=== PATIENT | female | born 1960 | race Caucasian/White ===

== ENCOUNTER 2019-09-11 10:14 | Outpatient (CLI) | payer MEDICARE, SELFPAY ==
--- NOTE | ~2019-09-11 | CT_ITS ---
EXAMINATION: CT lung screening DATE: 09/11/2019 10:55 INDICATION: History of tobacco dependence. Chronic cough. Lung cancer screening. TECHNIQUE: Computed tomography (CT) of the chest was performed without intravenous contrast. The dose -length product was 260.19 mGy-cm. Automated exposure control and iterative reconstruction technique were employed. COMPARISON: CT dated 07/14/2018 FINDINGS: No significant pleural or pericardial effusion. Heart size normal. Stable enlarged high rig ht paratracheal lymph node measuring 1.1 cm, likely reactive. Visualized aspects of the upper abdomen are unremarkable. Stable 4 mm right middle lobe nodule, image 53. There is a 3 mm nodule right middl e lobe, image 56, stable. Stable 2 mm right upper lobe nodule. 2 mm right lower lobe nodule, image 59 , stable. No new pulmonary nodules or masses. No focal airspace consolidation. No pneumothorax. IMPRESSION: 1. Lung-RADS category 2: Benign appearance or behavior. Continue annual screening with noncontrast lo w-dose chest CT in 12 months. Reviewed, dictated and finalized at location A. IMPRESSION: 1. Lung-RADS category 2: Benign appearance or behavior. Continue annual screeni ng with noncontrast low-dose chest CT in 12 months.
== END 2019-09-11 10:15 | disposition home or self-care (01) ==
PROVIDERS: PCP Family Medicine; Visit Provider Family Medicine
DX: Z12.2 Encounter for screening for malignant neoplasm of respiratory organs (principal); Z87.891 Personal history of nicotine dependence
CPT/HCPCS: G0297

== ENCOUNTER 2019-09-30 22:53 | Emergency (ER) | payer MEDICARE, SELFPAY ==
[2019-09-30 23:10] VITALS: BP 123/83; PULSE 115; RESP 20; TEMP 36.8; O2SAT 97
--- NOTE | 2019-09-30 23:11 | ED.NECK ---
HPI - Neck Pain/Injury General Chief Complaint: Unspecified Stated Complaint: swelling in law Time Seen by Provider: 09/30/19 22:57 Source: patient Mode of arrival: ambulatory Limitations: no limitations History of Present Illness HPI Narrative: 58-year-old woman comes in today complaining of some mild discomfort and swelling in her left cheek when she eats. Patient states that it started yesterday. She denies any fever, difficulty swallowing, difficulty breathing, tongue swelling or dental pain. She has had no prior similar episodes. She denies history of facial surgery. Onset (ago): day(s) (1) Place: home Severity: mild Quality: sharp Duration: intermittent Exacerbating factors: other ( Eating) Treatments prior to arrival: acetaminophen Related Data Home Medications Medication Instructions Recorded Confirmed atorvastatin 20 mg PO DAILY 09/30/19 09/30/19 citalopram 40 mg PO DAILY 09/30/19 09/30/19 glimepiride 2 mg PO DAILY 09/30/19 09/30/19 lisinopril 2.5 mg PO DAILY 09/30/19 09/30/19 metformin 1,000 mg PO BID 09/30/19 09/30/19 pioglitazone 15 mg PO DAILY 09/30/19 09/30/19 Allergies Allergy/AdvReac Type Severity Reaction Status Date / Time No Known Allergies Allergy Unknown Unverified 08/27/08 14:18 Review of Systems Constitutional: Constitutional: Denies chills, Reports fatigue and Denies fever(s) Eyes: Eyes: Denies change in vision and Denies photophobia ENT: Denies dysphagia, Denies nasal congestion and Denies sore throat Cardiovascular: Cardiovascular: Denies chest pain and Denies radiating jaw, neck or arm pain Respiratory: Respiratory: Denies cough, Denies dyspnea and Denies wheezing Gastrointestinal: Gastrointestinal: Denies abdominal pain and Denies vomiting Integumentary/Breasts: Skin/Breast: Denies pruritus, Denies erythema and Denies rash Neurologic: Denies vertigo, Denies dizziness and Denies syncope Hematologic/Lymphatic: Hematologic/Lymphatic: Denies easy bleeding and Denies easy bruising Allergic/Immunologic: Allergic/Immunologic: Denies lip swelling and Denies wheezing PMFSH Past Medical History Medical History Asthma COPD (chronic obstructive pulmonary disease) Dyslipidemia Fibromyalgia Hypertension Type 2 diabetes mellitus Surgical History Surgical History S/P hernia repair ventral Family History Family History (Updated 06/17/15 @ 09:29 by DOCTOR UNKNOWN) Other Diabetes mellitus Family history of alcoholism Family history of arthritis Family history of cardiovascular disease Hypertension Social History Social History Smoking status: Current every day smoker Alcohol intake: never Substance use: never Living arrangements: with family Exam Const: General: healthy appearing, no acute distress and alert Orientation/consciousness: patient oriented x3 Limitations: no limitations HENMT: Ears: external ears normal, TM's normal bilaterally and EAC's normal General nose exam: Normal nares present Mouth: Yes Normal oral and palatal mucosa present and Yes moist mucous membranes Throat: posterior oropharynx normal and uvula midline Other: mild swelling over the left jaw angle with no erythema, warmth, induration or masses. Palpation of the buccal surface shows no swelling, tenderness or palpable masses at Stensen's duct. Eyes: Conjunctivae: conjunctivae normal Pupils: Equal, round and reactive pupils present EOM: EOMs intact bilaterally Neck: Neck: normal visual inspection and no lymphadenopathy Resp: Effort & Inspection: normal respiratory effort and not labored Auscultation: clear to auscultation bilaterally, no rales, no rhonchi and no wheezes Cardio: Rate: regular rate Rhythm: regular rhythm Heart sounds: no murmurs Skin: General skin exam: normal color, no jaundice and
[2019-09-30 23:49] VITALS: BP 130/78; PULSE 100; RESP 20; TEMP 36.6; O2SAT 97
[2019-09-30] MEDS: AMOXICILLIN/CLAVULANATE K 875-125 MG TAB 1 TABLET PO (23:49)
== END 2019-09-30 23:51 | disposition home or self-care (01) ==
PROVIDERS: Emergency Provider Emergency Medicine; PCP Family Medicine
DX: K11.21 Acute sialoadenitis (principal)
CPT/HCPCS: 99283; A9270

== ENCOUNTER 2020-04-29 22:06 | Emergency (ER) | payer MEDICARE, SELFPAY ==
--- NOTE | ~2020-04-29 | XR_ITS ---
EXAMINATION: XR shoulder RT min 2V INDICATION: Right shoulder pain TECHNIQUE: Two views of the right shoulder are obtained on three radiographs. COMPARISON: 10/01/2015 FINDINGS: There is a chronic healed surgical neck fracture of the proximal humerus. No acute fracture is identified. Bone alignment is normal. There is mild osteoarthritis of the glenohumeral and acromi oclavicular joints. Soft tissues are unremarkable. IMPRESSION: 1. Healed fracture of the proximal right humerus without acute osseous abnormality. Reviewed, dictated and finalized at location A. RY DRILLER IMPRESSION: 1. Healed fracture of the proximal right humerus without acute osseous abnormal ity.
[2020-04-29 22:10] VITALS: BP 132/84; PULSE 101; RESP 20; TEMP 36.6; O2SAT 98
[2020-04-29] MEDS: HYDROmorphone HCL INJ (*CRX) 2 MG/ML VIAL 1 MG IM (22:33)
[2020-04-29] MEDS: ONDANSETRON HCL ODT 4 MG TABLET PO (22:35)
[2020-04-29 23:41] VITALS: BP 139/78; PULSE 100; RESP 20; TEMP 36.9; O2SAT 97
--- NOTE | 2020-04-29 23:46 | ED.UPPEXIN ---
HPI - Extremity Injury (Upper) General Chief Complaint: Extremity Injury, Upper Stated Complaint: shoulder pain Time Seen by Provider: 04/29/20 22:15 Source: patient Mode of arrival: ambulatory Limitations: no limitations History of Present Illness HPI narrative: Patient comes in after hearing a pop when she moved her right arm which had a fractured humerus in the past. She has had moderately severe, sharp pain with this, ongoing since hearing the pop a few minutes prior to arrival. Nothing has made this better or worse MD complaint: injury to: right and shoulder Onset (ago): minute(s) (30) Other injuries: none Handedness: right Place: home Severity: moderate Severity scale (1-10): 5 Relieving factors: none Exacerbating factors: none Associated symptoms: denies other symptoms Related Data Home Medications Medication Instructions Recorded Confirmed atorvastatin 20 mg PO DAILY 09/30/19 04/29/20 citalopram 40 mg PO DAILY 09/30/19 04/29/20 glimepiride 2 mg PO DAILY 09/30/19 04/29/20 lisinopril 2.5 mg PO DAILY 09/30/19 04/29/20 metformin 1,000 mg PO BID 09/30/19 04/29/20 pioglitazone 15 mg PO DAILY 09/30/19 04/29/20 Allergies Allergy/AdvReac Type Severity Reaction Status Date / Time No Known Allergies Allergy Unknown Unverified 08/27/08 14:18 Review of Systems Constitutional: Constitutional: Reports no additional constitutional complaints Eyes: Eyes: Reports no additional eye complaints ENT: Reports system reviewed and no additional complaints, except as documented Cardiovascular: Cardiovascular: Reports no additional cardiovascular complaints Respiratory: Respiratory: Reports no additional respiratory complaints Gastrointestinal: Gastrointestinal: Reports no additional gastrointestinal complaints Genitourinary: Genitourinary: Reports no additional female genitourinary complaints Musculoskeletal: Musculoskeletal: Reports no additional musculoskeletal complaints Integumentary/Breasts: Skin/Breast: Reports system reviewed and no additional complaints, except as docu Neurologic: Reports system reviewed and no additional complaints, except as documented Psychiatric: Psychiatric: Reports no additional psychiatric complaints Endocrine: Endocrine: Reports no additional endocrine complaints Hematologic/Lymphatic: Hematologic/Lymphatic: Reports no additional hematologic/lymphatic complaints Allergic/Immunologic: Allergic/Immunologic: Reports no additional allergic/immunologic complaints PMFSH Past Medical History Medical History Acute shoulder pain Asthma COPD (chronic obstructive pulmonary disease) Dyslipidemia Fibromyalgia Hypertension Type 2 diabetes mellitus Surgical History Surgical History S/P hernia repair ventral Family History Family History Other Diabetes mellitus Family history of alcoholism Family history of arthritis Family history of cardiovascular disease Hypertension Social History Social History Smoking status: Current every day smoker Alcohol intake: never Substance use: never Exam Const: General: alert Other: Appears to be painful HENMT: Head: normal to inspection Ears: external ears normal and TM's normal bilaterally General nose exam: Normal external nose present Face and sinus: normal facial exam Mouth: Yes moist mucous membranes Throat: posterior oropharynx normal Eyes: Conjunctivae: conjunctivae normal Neck: Neck: normal visual inspection Lymphatic: no lymphadenopathy noted Chest: Chest palpation & inspection: normal inspection of the chest Resp: Effort & Inspection: normal respiratory effort Auscultation: clear to auscultation bilaterally Cardio: Rate: regular rate Rhythm: regular rhythm GI: GI Palp: Yes Soft to palpation (nontender) Sk
[2020-04-29] MEDS: KETOROLAC 10 MG TABLET PO (23:50)
== END 2020-04-30 | disposition home or self-care (01) ==
PROVIDERS: Emergency Provider Emergency Medicine; PCP Family Medicine
DX: M25.511 Pain in right shoulder (principal)
CPT/HCPCS: 73030; 96372; 99283; 99284; A9270; J1100; J1170; J1885

== ENCOUNTER 2020-06-12 22:19 | Emergency (ER) | payer MEDICARE, SELFPAY ==
[2020-06-12 22:30] VITALS: BP 109/69; PULSE 110; RESP 20; TEMP 36.9; O2SAT 97
--- NOTE | 2020-06-12 22:50 | ED.SKABFB ---
HPI - Skin/Abscess/Foreign Bdy General Chief complaint: Skin/Abscess/Foreign Body Stated complaint: sore on butt Source: patient Mode of arrival: ambulatory Limitations: no limitations History of Present Illness HPI narrative: this 59-year-old female that presents with a abscess on the right gluteal fold area that is nonfluctuant currently is warm tender to touch with no drainage patient has no fevers no shortness of breath no abdominal pain this has been going on for the last week or so and has gotten worse but it is nonfluctuant painful patient does have a history of diabetes. complaint: abscess/boil Onset (ago): day(s) Location: buttocks Severity: moderate Severity scale (1-10): 8 Quality: aching Pain Consistency: constant Exacerbating factors: palpation and movement Related Data Home Medications Medication Instructions Recorded Confirmed atorvastatin 20 mg PO DAILY 09/30/19 06/12/20 citalopram 40 mg PO DAILY 09/30/19 06/12/20 glimepiride 2 mg PO DAILY 09/30/19 06/12/20 lisinopril 2.5 mg PO DAILY 09/30/19 06/12/20 metformin 1,000 mg PO BID 09/30/19 06/12/20 pioglitazone 15 mg PO DAILY 09/30/19 06/12/20 Allergies Allergy/AdvReac Type Severity Reaction Status Date / Time No Known Allergies Allergy Unknown Unverified 08/27/08 14:18 Review of Systems Review of Systems: All systems reviewed & are unremarkable except as noted in HPI and below PMFSH Past Medical History Medical History Acute shoulder pain Asthma COPD (chronic obstructive pulmonary disease) Dyslipidemia Fibromyalgia Hypertension Type 2 diabetes mellitus Surgical History Surgical History S/P hernia repair ventral Family History Family History Other Diabetes mellitus Family history of alcoholism Family history of arthritis Family history of cardiovascular disease Hypertension Social History Social History Smoking status: Current every day smoker Alcohol intake: never Substance use: never Exam Const: General: no acute distress Orientation/consciousness: patient oriented x3 HENMT: Head: normal to inspection Eyes: Conjunctivae: conjunctivae normal Pupils: Equal, round and reactive pupils present EOM: EOMs intact bilaterally Neck: Neck: normal visual inspection, no lymphadenopathy and no meningeal signs Chest: Chest palpation & inspection: normal inspection of the chest Resp: Effort & Inspection: normal respiratory effort Auscultation: clear to auscultation bilaterally Cardio: Rate: regular rate Rhythm: regular rhythm GI: Auscultation: normal bowel sounds Skin: Other: Right [place] buttock area has a an abscess it is nonfluctuant firm tender to touch with no drainage approximately 3cm in diameter Neuro: General: patient oriented x3, moves all extremities and no meningeal signs Psych: Appearance: grossly normal Mental Status: mental status grossly normal Thought content: Yes Normal thought content present Course Course Emergency Course: after evaluation of patient the abscess is firm and nonfluctuant and advised her to use a warm compress pain medicine as prescribed, and will give her a dose of ceftriaxone and Toradol patient is here in the emergency department. Critical Care Time Critical Care Time Critical Care Time: No Discharge Plan Discharge Clinical Impression: Abscess of skin or subcutaneous tissue Patient Disposition: Home, Self-Care Condition: Stable Instructions: Antibiotic Form, Abscess (ED) Additional Instructions: Take medicine as prescribed, can use warm compress to affected area and follow-up with primary care physician in 1 to 2 weeks if symptoms persist or worsen. Prescriptions: New amoxicillin-pot clavulanate [Augmentin] 875-125 mg tablet
[2020-06-12] MEDS: cefTRIAXone 1 GM VIAL IM (23:00)
[2020-06-12] MEDS: LIDOCAINE HCL 1% LOCAL INJ 20 ML VIAL (23:04)
[2020-06-12] MEDS: KETOROLAC (*BKC) 60 MG/2 ML VIAL IM (23:04)
[2020-06-12 23:08] VITALS: BP 110/60; PULSE 100; RESP 20; TEMP 36.6; O2SAT 98
== END 2020-06-12 23:12 | disposition home or self-care (01) ==
PROVIDERS: Emergency Provider Emergency Medicine; PCP Family Medicine
DX: L02.31 Cutaneous abscess of buttock (principal)
CPT/HCPCS: 96372; 99283; 99284; J0696; J1885

== ENCOUNTER 2020-07-31 20:53 | Emergency (ER) | payer MEDICARE, SELFPAY ==
[2020-07-31 20:55] VITALS: BP 129/93; PULSE 94; RESP 20; TEMP 36.6; O2SAT 97
[2020-07-31] MEDS: LIDOCAINE HCL 1% LOCAL INJ 20 ML VIAL 10 ML INFILTRATE (21:10)
--- NOTE | 2020-07-31 21:19 | ED.WOUNDLAC ---
HPI - Wound/Laceration General Stated Complaint: abscess on butt Source: patient Mode of arrival: ambulatory Limitations: no limitations History of Present Illness HPI narrative: This is a 59-year-old female with some history of diabetes and recurrent abscess formation currently has an abscess on the right gluteal area that is fluctuant painful proximally 4cm in diameter and has been mildly draining there is currently no fever chills pain level is about a 7/10 had similar episode about 3 months ago was prescribed antibiotics. Patient has a history of diabetes according the patient probably not work very well controlled. Onset (ago): week(s) Location: other (buttock) Related Data Home Medications Medication Instructions Recorded Confirmed atorvastatin 20 mg PO DAILY 09/30/19 06/12/20 citalopram 40 mg PO DAILY 09/30/19 06/12/20 glimepiride 2 mg PO DAILY 09/30/19 06/12/20 lisinopril 2.5 mg PO DAILY 09/30/19 06/12/20 metformin 1,000 mg PO BID 09/30/19 06/12/20 pioglitazone 15 mg PO DAILY 09/30/19 06/12/20 Allergies Allergy/AdvReac Type Severity Reaction Status Date / Time No Known Allergies Allergy Unknown Unverified 08/27/08 14:18 Review of Systems Review of Systems: All systems reviewed & are unremarkable except as noted in HPI and below PMFSH Past Medical History Medical History Acute shoulder pain Asthma COPD (chronic obstructive pulmonary disease) Dyslipidemia Fibromyalgia Hypertension Type 2 diabetes mellitus Surgical History Surgical History S/P hernia repair ventral Family History Family History Other Diabetes mellitus Family history of alcoholism Family history of arthritis Family history of cardiovascular disease Hypertension Social History Social History Smoking status: Current every day smoker Alcohol intake: never Substance use: never Exam Const: General: no acute distress and alert Orientation/consciousness: patient oriented x3 HENMT: Head: normal to inspection Eyes: Conjunctivae: conjunctivae normal Pupils: Equal, round and reactive pupils present EOM: EOMs intact bilaterally Neck: Neck: normal visual inspection, no lymphadenopathy and no meningeal signs Chest: Chest palpation & inspection: normal inspection of the chest Resp: Effort & Inspection: normal respiratory effort Auscultation: clear to auscultation bilaterally Cardio: Rate: regular rate Rhythm: regular rhythm GI: GI Palp: Yes Soft to palpation Skin: Other: Fluctuant area right gluteal fold approximately 4cm in diameter with some mild drainage warmth tenderness Neuro: General: patient oriented x3, moves all extremities and no meningeal signs Extrem: General: normal to inspection and no pedal edema Psych: Appearance: grossly normal Mental Status: mental status grossly normal Affect: normal affect Course Course Emergency Course: patient area examined there is a fluctuant area right gluteal fold approximately 4cm in diameter is fluctuant with some drainage warm and tender, iodine was sprayed on the area, 1% lidocaine [id number] were injected for a topical anesthetic 11 blade was used to make incision and there was a significant amount of purulence to drainage. Patient also having pain received 60 mg IM Toradol, 1 g IM ceftriaxone and apply triple antibiotic ointment to the area as well. Procedures Abscess I/D jose-rectal: Date of Incision: 07/31/20 Time of Incision: 21:24 Side (if applicable): right Sedation/analgesia: none Local Anesthetic: lidocaine 1% Amount of anesthesia used (mL): 4 Technique: incised with #11 blade Amount of fluid expressed (mL): 15 Irrigation: No Packing used?: none I&D Res
[2020-07-31] MEDS: NEOMYCIN/POLYMYXIN/BACITRACIN OINTMENT PACKET 1 PACKET TOPICAL (21:25)
[2020-07-31] MEDS: KETOROLAC (*BKC) 60 MG/2 ML VIAL IM (21:35)
[2020-07-31] MEDS: cefTRIAXone 1 GM VIAL IM (21:35)
[2020-07-31 21:48] VITALS: BP 129/93; PULSE 95; RESP 20; TEMP 36.6; O2SAT 97
== END 2020-07-31 21:55 | disposition home or self-care (01) ==
PROVIDERS: Emergency Provider Emergency Medicine; PCP Family Medicine
DX: L02.31 Cutaneous abscess of buttock (principal)
CPT/HCPCS: 46040; 87070; 87205; 96372; 99283; 99284; J0696; J1885

== ENCOUNTER 2020-08-26 12:57 | Outpatient (CLI) | payer MEDICARE, SELFPAY ==
--- NOTE | ~2020-08-26 | MM_ITS ---
EXAMINATION: MM screening [facility] BI w castillo HISTORY: Screening TECHNIQUE: Craniocaudal and mediolateral oblique 3-D tomosynthesis images were obtained and synthetic 2-D images were generated. CAD analysis was submitted and interpreted. COMPARISON: Comparison to multiple prior studies sequentially, with oldest reviewed study dated 06/2013. BREAST PARENCHYMAL COMPOSITION: There are scattered areas of fibroglandular density. FINDINGS: There is no evidence of suspicious mass, calcification, or architectural distortion to sugg est malignancy in either breast. There has been no suspicious interval change. IMPRESSION: 1. No mammographic evidence of malignancy. 2. Recommend routine screening mammography in one year. BI-RADS Category 1: Negative Reviewed, dictated and finalized at location A.
--- NOTE | ~2020-08-26 | CT_ITS ---
EXAMINATION: CT lung screening DATE: 08/26/2020 13:18 INDICATION: Personal history of tobacco dependence, current smoker with 30 pack year history TECHNIQUE: Computed tomography (CT) of the chest was performed without intravenous contrast. The dose -length product (DLP) was 88.23 mGy-cm. Automated exposure control and iterative reconstruction techn [employer] were employed. COMPARISON: 09/11/2019 FINDINGS: There are multiple stable pulmonary nodules. The largest is a 4 mm subpleural nodule of the right middle lobe on image 62. No new or suspicious pulmonary nodule is identified. There is mild em physema. No pleural effusion or pneumothorax is identified. The lungs are free of acute opacities. No pathologically enlarged thoracic lymph nodes are identified. The heart size is normal. IMPRESSION: 1. Lung-RADS category 2: Benign appearance or behavior. Continue annual screening with noncontrast lo w-dose chest CT in 12 months. Reviewed, dictated and finalized at location A. IMPRESSION: 1. Lung-RADS category 2: Benign appearance or behavior. Continue annual screeni ng with noncontrast low-dose chest CT in 12 months.
== END 2020-08-26 12:58 | disposition home or self-care (01) ==
LOC: CHSIMG 12:59
PROVIDERS: PCP Family Medicine; Visit Provider Family Medicine
DX: Z12.2 Encounter for screening for malignant neoplasm of respiratory organs (principal); Z87.891 Personal history of nicotine dependence; Z12.31 Encounter for screening mammogram for malignant neoplasm of breast
CPT/HCPCS: 71271; 77063; 77067

== ENCOUNTER 2022-10-10 19:03 | Emergency (ER) | payer MEDICARE, SELFPAY ==
[2022-10-10 19:05] VITALS: BP 135/84; PULSE 129; RESP 20; TEMP 36.6; O2SAT 97
--- NOTE | 2022-10-10 19:06 | ED.BACK ---
HPI - Back Pain/Injury General Chief Complaint: Back Pain/Injury Stated Complaint: low back pain Time Seen by Provider: 10/10/22 19:05 Source: patient and RN notes reviewed Mode of arrival: ambulatory Limitations: no limitations History of Present Illness MD elicited complaint: back pain Onset (ago): week(s) (2) Timing: constant Quality: dull, aching, spasming and throbbing Location: lumbar spine Radiation: abdomen Exacerbating factors: movement Relieving factors: none Associated symptoms: denies other symptoms Related Data Home Medications Medication Instructions Recorded Confirmed ascorbic acid (vitamin C) 1,000 mg 1 g PO DAILY 10/10/22 10/10/22 tablet (Vitamin C) omega 4-bzb-yoc-fish oil 1,000 mg 1 cap PO DAILY 10/10/22 10/10/22 (120 mg-180 mg) capsule (Fish Oil) sitagliptin phosphate 25 mg tablet 25 mg PO DAILY 10/10/22 10/10/22 (Januvia) Allergies Allergy/AdvReac Type Severity Reaction Status Date / Time No Known Allergies Allergy Unknown Unverified 10/10/22 19:10 Review of Systems Review of Systems: All systems reviewed & are unremarkable except as noted in HPI and below Genitourinary: Genitourinary: Denies nocturia and Denies dysuria PMFSH Past Medical History Medical History (Updated 10/10/22 @ 19:43 by Everett Swift MD) Acute shoulder pain Asthma COPD (chronic obstructive pulmonary disease) Dyslipidemia Fibromyalgia Hypertension IBS (irritable bowel syndrome) Type 2 diabetes mellitus Surgical History Surgical History S/P hernia repair ventral Family History Family History Other Diabetes mellitus Family history of alcoholism Family history of arthritis Family history of cardiovascular disease Hypertension Social History Social History Smoking status: Current every day smoker Alcohol intake: never Substance use: never Living arrangements: with family Exam Const: General: healthy appearing, no acute distress and alert Nutritional Appearance: well nourished Orientation/consciousness: patient oriented x3 Limitations: no limitations Other: Nurse in room during examination. HENMT: Head: normal to inspection Ears: external ears normal Face/Nose/Sinus: Normal external nose present Face and sinus: normal facial exam Mouth: Yes moist mucous membranes Eyes: Conjunctivae: conjunctivae normal Pupils: Equal, round and reactive pupils present EOM: EOMs intact bilaterally Neck: Neck: normal visual inspection Resp: Effort & Inspection: normal respiratory effort Auscultation: clear to auscultation bilaterally Cardio: Rate: regular rate Rhythm: regular rhythm GI: GI Palp: Yes Soft to palpation and No Tenderness to palpation present (GI) Auscultation: normal bowel sounds Back/Spine/Pelvis: Cervical Spine: cervical ROM normal Thoracic/Lumbar Spine: thoraco-lumbar ROM normal ( But reproduces her pain), straight leg raise negative bilaterally, paraspinal muscle tenderness bilaterally in the lower lumbar, thoraco-lumbar spasm bilaterally in the lower lumbar and No lumbar spinal tenderness Skin: General skin exam: normal color Rashes: no rashes Neuro: General: patient oriented x3, moves all extremities, no focal motor deficits and CN's II-XI intact bilaterally Speech: normal speech Gait exam (Neuro): Normal gait present Deep tendon reflexes (DTR's): Right patellar reflex intensity grade: 2+, Left patellar reflex intensity grade: 2+, Right ankle reflex intensity grade: 2+ and Left ankle reflex intensity grade: 2+ Extrem: General: normal to inspection and no clubbing, cyanosis or edema Psych: Mental Status: mental status grossly normal Affect: normal affect Attitude: cooperative MDM - Back Pain/Injury Differential Diagnosis Differential diagnosis: Likely lumbar radiculopathy, sciatica, s
[2022-10-10 19:29] LABS: Add Urine Microscopic? YES; Appearance Urine Slightly Cloudy (Clear); Bilirubin Urine Negative (Negative); Blood Urine Negative (Negative); Color Urine Dark Orange (Yellow); Glucose Urine UA Trace (Negative); Ketones Urine Trace (Negative); Leukocyte Esterase Ur Negative LEU/UL (Negative); Nitrate Urine Negative (Negative); Protein Urine Trace (Negative); Specific Grav Ur >= 1.030 (1.010-1.020); Urobilinogen Urine 0.2 mg/dL (0.2-1.0)
[2022-10-10 19:30] LABS: Hyaline Casts Urine 50+ /lpf; Mucus Urine Heavy /lpf; Squamous Epithelial Cell Urine Many /hpf (Few)
[2022-10-10] MEDS: ORPHENADRINE CITRATE 30 MG/ML 2 ML VIAL 60 MG IM (19:37)
[2022-10-10] MEDS: KETOROLAC (*BKC) 60 MG/2 ML VIAL IM (19:38)
[2022-10-10 20:05] VITALS: BP 143/85; PULSE 122; RESP 20; O2SAT 97
== END 2022-10-10 20:07 | disposition home or self-care (01) ==
PROVIDERS: Emergency Provider Emergency Medicine; PCP Family Medicine
DX: M79.7 Fibromyalgia (principal); J44.9 Chronic obstructive pulmonary disease, unspecified; I10 Essential (primary) hypertension; E11.9 Type 2 diabetes mellitus without complications; F17.200 Nicotine dependence, unspecified, uncomplicated
CPT/HCPCS: 81001; 96372; 99284; J1885; J2360

== ENCOUNTER 2023-04-04 15:37 | Observation (INO) | payer MEDICARE, SELFPAY ==
--- NOTE | ~2023-04-04 | CT_ITS ---
EXAMINATION: CT abdomen pelvis wo con DATE: 04/04/2023 16:08 INDICATION: Bilateral flank pain. Dysuria. History of stones. TECHNIQUE: Computed tomography (CT) of the abdomen and pelvis was performed without intravenous contr ast. The dose-length product was 562.56 mGy-cm. Automated exposure control and iterative reconstructi on technique were employed. COMPARISON: CT dated 09/08/2018. FINDINGS: There are right middle lobe nodules, largest measuring 4 mm, likely benign. Heart size norm al. No significant pleural or pericardial effusion. The liver, spleen, and pancreas are unremarkable. There are nonobstructing bilateral renal stones, largest in the left renal pelvis measuring 5 mm the re there is thickening of the adrenal glands bilaterally, consistent with adrenal hyperplasia. There is atherosclerosis of the aorta without aneurysm. No abnormal pelvic masses or fluid collections. The re is atherosclerosis of the aorta. Gallbladder is present. Mild lumbar spondylosis. No free air or f ree fluid. No abnormal pelvic masses. IMPRESSION: 1. Nonobstructing bilateral nephrolithiasis. 2: Thickened bilateral adrenal glands, consistent with hyperplasia. 3: Right middle lobe nodules, largest measuring 4 mm, likely benign. Consider follow-up low dose CT chest in 12 months. Reviewed, dictated and finalized at location A. AWAY ATTENDANT
[2023-04-04 15:38] VITALS: BP 145/92; PULSE 112; RESP 20; TEMP 36.6; O2SAT 97
--- NOTE | 2023-04-04 15:52 | ED.GENADULT ---
HPI - General Adult General Chief complaint: Urogenital-Female Stated complaint: Urinary problem Time Seen by Provider: 04/04/23 15:38 History of Present Illness HPI narrative: Jesusita is a 62F with a PMH of fibromyalgia and DMII that presented to the ED with worsening pain with urination and hematuria. She has been having some bilateral flank pain but the hematuria and dysuria started today. No fevers or chills, N/V or dyspnea. Related Data Home Medications Medication Instructions Recorded Confirmed ascorbic acid (vitamin C) 1,000 mg 1 g PO DAILY 10/10/22 04/04/23 tablet (Vitamin C) omega 7-[id number]-hnm-fish oil 1,000 mg 1 cap PO DAILY 10/10/22 04/04/23 (120 mg-180 mg) capsule (Fish Oil) sitagliptin phosphate 25 mg tablet 25 mg PO DAILY 10/10/22 04/04/23 (Januvia) atorvastatin 20 mg tablet 20 mg PO DAILY 04/04/23 04/04/23 pregabalin 50 mg capsule 50 mg PO BID 04/04/23 04/04/23 Allergies Allergy/AdvReac Type Severity Reaction Status Date / Time No Known Allergies Allergy Unknown Unverified 10/10/22 19:10 Review of Systems Review of Systems: All systems reviewed & are unremarkable except as noted in HPI and below PMFSH Past Medical History Medical History Acute shoulder pain Asthma COPD (chronic obstructive pulmonary disease) Dyslipidemia Fibromyalgia Hypertension IBS (irritable bowel syndrome) Type 2 diabetes mellitus Surgical History Surgical History S/P hernia repair ventral Family History Family History Other Diabetes mellitus Family history of alcoholism Family history of arthritis Family history of cardiovascular disease Hypertension Social History Social History Smoking status: Current every day smoker Alcohol intake: never Substance use: never Living arrangements: with family Exam Const: General: cooperative, healthy appearing, comfortable, no acute distress, well developed, alert, awake and Physically active Orientation/consciousness: oriented to person, oriented to place and oriented to time HENMT: Head: normal to inspection, normocephalic and atraumatic Ears: hearing grossly normal bilaterally and external ears normal Face/Nose/Sinus: Normal external nose present Eyes: General: appearance normal, both eyes and all related structures Periorbital: periorbital findings normal Sclera: sclerae normal Pupils: Equal, round and reactive pupils present Neck: Neck: normal visual inspection Chest: Chest palpation & inspection: normal inspection of the chest Resp: Effort & Inspection: normal respiratory effort, able to speak in complete sentences and no respiratory distress Auscultation: clear to auscultation bilaterally Cardio: Jugular venous distension: no JVD Rate: regular rate Rhythm: regular rhythm GI: Inspection: normal to inspection GI Palp: Yes Soft to palpation Auscultation: normal bowel sounds : Other: +suprapubic tenderness, mild bilateral flank tenderness Skin: General skin exam: normal color and no rashes or lesions noted Neuro: General: oriented to person, oriented to place and oriented to time Cranial nerves: Yes Equal, round and reactive pupils present Extrem: General: normal to inspection Course Course Emergency Course: Ordered labs, UA, CT and toradol. UA showed 3+ blood, +nitrites and leuk esterase and she had a WBC of 15. CMP showed a glucose of 200. EXAMINATION: CT abdomen pelvis wo con DATE: 04/04/2023 16:08 INDICATION: Bilateral flank pain. Dysuria. History of stones. TECHNIQUE: Computed tomography (CT) of the abdomen and pelvis was performed without intravenous contrast. The dose-length product was 562.56 mGy-cm. Automated exposure control and iterative reconstruction technique were employed.
[2023-04-04 16:00] VITALS: BP 117/91; PULSE 118; RESP 17; O2SAT 98
[2023-04-04 16:03] LABS: Hematocrit 42.5 % (35.0-49.0); Hemoglobin 14.8 g/dL (12.0-15.0); Mean Corpuscular HGB Conc 34.8 g/dL (32.0-36.0); Mean Corpuscular Hemoglobin 31.2 pg (27.0-31.0); Mean Corpuscular Volume 89.5 fL (78.0-102.0); Mean Platelet Volume 9.4 fl (9.2-11.8); Platelet Count Result 331 K/mm3 (150-420); Red Blood Count 4.75 M/mm3 (4.20-5.40); Red Cell Distribution Width 11.7 % (11.6-14.4); White Blood Count 15.6 K/mm3 (4.8-10.8)
[2023-04-04 16:04] LABS: Appearance Urine Turbid (Clear); Bilirubin Urine Negative (Negative); Blood Urine 3+ (Negative); Glucose Urine UA Negative (Negative); Ketones Urine Trace (Negative); Leukocyte Esterase Ur 1+ LEU/UL (Negative); Nitrate Urine Positive (Negative); Protein Urine 2+ (Negative); Specific Grav Ur >= 1.030 (1.010-1.020)
[2023-04-04 16:09] LABS: Add Urine Microscopic? YES; Color Urine Dark Yellow (Yellow); RBC Urine >75 /hpf (0-2)
[2023-04-04 16:10] LABS: Bacteria Urine 2+ /hpf; Squamous Epithelial Cell Urine Few /hpf (Few)
[2023-04-04 16:11] LABS: Band Neutrophils Percent 0 % (0-6); Basophils Absolute Manual 0.15 K/mm3 (0-0.1); Basophils Percent Manual 1 % (0-1); Eosinophils Absolute Manual 0.15 K/mm3 (0.02-0.5); Eosinophils Percent Manual 1 % (1-6); Lymphocytes Absolute Manual 4.68 K/mm3 (1.1-4.5); Lymphocytes Percent Manual 30 % (18-44); Monocytes Absolute Manual 0.93 K/mm3 (0.1-0.90); Monocytes Percent Manual 6 % (3-9); Neutrophils Absolute Manual 9.67 K/mm3 (1.7-7.2); Neutrophils Percent Manual 62 % (46-73); Total Cells Counted 100
[2023-04-04 16:12] LABS: Platelet Estimate Adequate (Adequate)
[2023-04-04 16:19] LABS: Alanine Aminotransferase 30 U/L (14-59); Albumin Level 4.1 g/dL (3.4-5.0); Alkaline Phosphatase 97 U/L (46-116); Anion Gap 9 mmol/L (8-16); Aspartate Amino Transferase 16 U/L (15-37); Bilirubin,Total 0.5 mg/dL (0.00-1.00); Blood Urea Nitrogen 17 mg/dL (7-18); Calcium 9.5 mg/dL (8.5-10.1); Carbon Dioxide 29 mmol/L (21-32); Chloride 99 mmol/L (98-108); Estimated CRCL calculation 64 ml/min; Estimated Glomerular Filt Rate > 60; Glucose 200 mg/dL (70-99); Lipase 167 U/L (16-77); Osmolality Calculated 291 mOsm/kg (285-295); Sodium 137 mmol/L (136-145); Total Protein 7.9 g/dL (6.4-8.2)
[2023-04-04] MEDS: cefTRIAXone 2 GM/NS 100 ML 2 GM/100 ML BAG IVPB (16:20)
[2023-04-04 16:21] LABS: CRP < 0.5 mg/dL (0.0-0.9)
[2023-04-04] MEDS: KETOROLAC 30 MG/ML VIAL (*BKC) IV PUSH (16:21)
[2023-04-04 16:30] VITALS: BP 114/76; PULSE 89; RESP 17; O2SAT 98
[2023-04-04] MEDS: SODIUM CHLORIDE 0.9% IV 500 ML 100 ML IV CONT (17:00)
[2023-04-04] MEDS: TAMSULOSIN HCL 0.4 MG CAPSULE PO (17:01)
[2023-04-04 17:05] VITALS: BMI 27.7
[2023-04-04 17:09] VITALS: BP 126/71; PULSE 85; RESP 17; TEMP 36.6; O2SAT 99
[2023-04-04] MEDS: SODIUM CHLORIDE 0.9% IV 1,000 ML 100 ML IV CONT (18:15)
[2023-04-04] MEDS: NICOTINE (*PBKC) 21 MG PATCH 1 PATCH TRANSDERM (18:41)
--- NOTE | 2023-04-04 19:31 | ADMGEN ---
This patient, Jesusita Balderas, was admitted to 2nd Floor Room 204-2. Patient/family oriented to hospital policies and general routines including ID bracelet, bed and alarms, visiting hours, pain management, procedures, bathroom and other care routines, personal items, smoking policy, room service/diet, and visiting hours. Information on how to activate the Rapid Response Team has been discussed. Patient/Family are encouraged to report perceived risks to care and to ask questions if they do not understand what they are told or what they should do.
[2023-04-04] MEDS: MORPHINE SULFATE (*CRX) 2 MG/ML INJ IV PUSH (21:39)
[2023-04-05] VITALS: BP 122/69; PULSE 113; RESP 18; TEMP 36.3; O2SAT 98
--- NOTE | 2023-04-05 00:15 | PC.NURSE ---
Dr. Souza notified regarding pt's request for medication to relieve her cough. A new order for Tessalon pearls TID PRN was given.
[2023-04-05] MEDS: SODIUM CHLORIDE 0.9% IV 1,000 ML 100 ML IV CONT (03:56)
[2023-04-05] MEDS: BENZONATATE 100 MG CAPSULE PO (03:58)
[2023-04-05] MEDS: ACETAMINOPHEN 325 MG TABLET 650 MG PO (04:01)
[2023-04-05 05:31] LABS: Basophils Absolute Auto 0.05 K/mm3 (0.00-0.10); Basophils Percent Auto 0.5 % (0.0-1.0); Eosinophils Absolute Auto 0.24 K/mm3 (0.02-0.50); Eosinophils Percent Auto 2.4 % (1.0-6.0); Hematocrit 37.7 % (35.0-49.0); Immature Granulocyte Absolute 0.01 K/mm3 (0.00-0.00); Immature Granulocyte Percent A 0.1 % (0.0-0.0); Lymphocytes Absolute Auto 3.29 K/mm3 (1.10-4.50); Lymphocytes Percent Auto 32.3 % (18.0-42.0); Mean Corpuscular HGB Conc 34.5 g/dL (32.0-36.0); Mean Corpuscular Hemoglobin 31.5 pg (27.0-31.0); Mean Corpuscular Volume 91.3 fL (78.0-102.0); Mean Platelet Volume 9.7 fl (9.2-11.8); Monocytes Absolute Auto 0.64 K/mm3 (0.10-0.90); Monocytes Percent Auto 6.3 % (2.0-11.0); Neutrophils Percent Auto 58.4 % (50.0-70.0); Platelet Count Result 276 K/mm3 (150-420); Red Blood Count 4.13 M/mm3 (4.20-5.40); Red Cell Distribution Width 11.9 % (11.6-14.4); White Blood Count 10.2 K/mm3 (4.8-10.8)
[2023-04-05 06:01] LABS: Anion Gap 7 mmol/L (8-16); Blood Urea Nitrogen 17 mg/dL (7-18); Calcium 8.5 mg/dL (8.5-10.1); Carbon Dioxide 29 mmol/L (21-32); Chloride 102 mmol/L (98-108); Estimated CRCL calculation 69 ml/min; Estimated Glomerular Filt Rate > 60; Glucose 261 mg/dL (70-99); Osmolality Calculated 296 mOsm/kg (285-295); Potassium 4.2 mmol/L (3.5-5.1); Sodium 138 mmol/L (136-145)
--- NOTE | 2023-04-05 06:47 | PC.NURSE ---
Addendum entered by Yoselin Velasco RN 04/05/23 07:15: CT of patient indicated that she has kidney stones. Her urine has been strained, but no stones have been found at this time. There is a lot of sediment, and some mucous strands in the urine. Original Note: Patient was admitted somewhat before shift began. Patient is alert, oriented, and able to walk independently. Patient had pain of 6-7 in the flank area; however she did not want to take any pain medicine until bedtime, as she still had phone calls to make to her family. At bedtime, patient's pain level was up to 7-8, and 2 mg of IV morphine was given. Patient was then able to sleep, and her pain dropped down to a 3 by report. Vitals were WNL, except for HR which was tachy. This is consistent with previous vitals.
[2023-04-05 08:00] VITALS: BP 141/84; PULSE 97; RESP 17; TEMP 36.4; O2SAT 98
[2023-04-05] MEDS: HYDROcodone/acetaminophen (*CRX) 5-325 MG TABLET 1 TAB PO (08:52)
[2023-04-05] MEDS: PREGABALIN (*CRX) 50 MG CAPSULE PO (08:53)
--- NOTE | 2023-04-05 08:54 | PM.SD2 ---
Same Day Admit/Disch: HPI History of Present Illness Chief complaint: Urinary problem Narrative: Jesusita Balderas is a 62 year old female With a history of type 2 diabetes, COPD, fibromyalgia and elevated cholesterol who is admitted to the hospital due to urinary urgency, dysuria, generalized myalgias and generalized weakness. Patient reports that her back is been hurting her all week that she has attributed to her fibromyalgia and increased crisp shopping. She notes that early in March she was prescribed Bactrim for a urinary tract infection but does not know if it ever fully cleared up. Yesterday morning patient woke up generally feeling terrible with nondistinct symptoms. She began having urinary pain and weakness. Throughout the day she had increased urination and began to urinate blood clots. At this time she decided to come to the emergency department where she was found to have leukocytosis and UA consistent with urinary tract infection. Patient also has bilateral kidney stones that are nonobstructive. The thought was that she may have passed a kidney stone verses hemorrhagic cystitis she received dose of IV Rocephin as well as IV fluids and was admitted to the hospital for further IV antibiotics. On evaluation this morning patient reports that she is already feeling better. Her white blood cell count is improving went from over 15-10. Patient is requesting discharge. Spoke with prior admitting physician who recommended patient received 2 doses of IV antibiotics. This is agreeable with patient so she will receive additional ceftriaxone this afternoon and discharge home following this. Due to her increased pain we will prescribe a few doses of [place] and we will follow urine and blood cultures. [facility] Past Medical History Medical History Acute shoulder pain Asthma COPD (chronic obstructive pulmonary disease) Dyslipidemia Fibromyalgia Hypertension IBS (irritable bowel syndrome) Type 2 diabetes mellitus Surgical History Surgical History S/P hernia repair ventral Family History Family History Other Diabetes mellitus Family history of alcoholism Family history of arthritis Family history of cardiovascular disease Hypertension Social History Social History Smoking packs per day: 20 Smoking cigarettes per day: 400.0 Years smoked: 35 Smoking pack-years: 700.00 Smoking status: Current every day smoker Tobacco type: cigarettes Alcohol intake: never Substance use: never Do You Feel Safe in your Home?: Yes Lack of Transportation: No Lack of Food: Never True Current Housing: I Have Housing Concerned About Future Housing: No Difficulty Paying Gas/Electric Bills: No Difficulty Paying for Meds: No Currently Unemployed: No Education: High School Diploma/GED Difficulty w/ Childcare or Family Care: No Living arrangements: with family Spiritual care concerns: No Same Day Admit/Disch: Med Pre-admit Medications Home Medications Medication Instructions Recorded Confirmed Type sitagliptin phosphate 25 mg tablet 25 mg PO DAILY 10/10/22 04/04/23 History (Januvia) atorvastatin 20 mg tablet 20 mg PO DAILY 04/04/23 04/04/23 History pregabalin 50 mg capsule 50 mg PO BID 04/04/23 04/04/23 History cefdinir 300 mg capsule 300 mg PO Q12H #10 caps 04/05/23 Rx hydrocodone 5 mg-acetaminophen 325 1 tablet PO Q4H PRN severe pain 04/05/23 Rx mg tablet (scale score 7-10) #12 tabs Review of Systems Review of Systems All systems reviewed & are unremarkable except as noted in HPI and below Exam Narrative: GENERAL: Well-appearing, well-nourished, and in no acute distress. HEAD: Normocephalic, atraumatic. ENT:? Mucous membranes moist. CHEST: Clear
[2023-04-05] MEDS: cefTRIAXone 2 GM/NS 100 ML 2 GM/100 ML BAG IVPB (13:04)
--- NOTE | 2023-04-05 14:00 | PC.NURSE ---
Discharge instructions reviewed with patient. All questions answered. Pt escorted to front of hospital where she departed in private vehicle.
--- NOTE | 2023-04-06 10:31 | PC.NURSE ---
No answer, unable to complete discharge call back
--- NOTE | 2023-04-07 09:12 | PC.NURSE ---
Discharge call back attempted, goes to voicemail
--- NOTE | 2023-04-08 10:02 | PC.NURSE ---
Discharge call back attempted, no answer
--- NOTE | 2023-04-10 07:56 | PC.NURSE ---
urine culture reviewed. pt discharge with rx for cefdinir. no need for any changes per dr montalvo.
--- NOTE | 2023-04-10 13:19 | PC.NURSE ---
Final back on culture, ACCOUNTING DIRECTOR Bud called patient with update on antibiotics. Patient states understanding.
== END 2023-04-05 14:00 | disposition home or self-care (01) ==
LOC: CHSED 16:33 → CHS2ND 04-05 07:18
PROVIDERS: Nurse Practitioner Family; Admitting Provider Internal Medicine; Emergency Provider Family Medicine; PCP Family Medicine; Visit Provider Internal Medicine
DX: N39.0 Urinary tract infection, site not specified (principal); R31.9 Hematuria, unspecified; B96.20 Unspecified Escherichia coli [E. coli] as the cause of diseases classified elsewhere; N20.0 Calculus of kidney; M79.7 Fibromyalgia; E11.9 Type 2 diabetes mellitus without complications; J44.9 Chronic obstructive pulmonary disease, unspecified; E78.5 Hyperlipidemia, unspecified; I10 Essential (primary) hypertension; R91.8 Other nonspecific abnormal finding of lung field; E27.9 Disorder of adrenal gland, unspecified; K58.9 Irritable bowel syndrome, unspecified; F17.210 Nicotine dependence, cigarettes, uncomplicated; Z79.84 Long term (current) use of oral hypoglycemic drugs; Z79.891 Long term (current) use of opiate analgesic; Z79.899 Other long term (current) drug therapy; Z82.49 Family history of ischemic heart disease and other diseases of the circulatory system
CPT/HCPCS: 36415; 74176; 80048; 80053; 81001; 83605; 83690; 85025; 86140; 87040; 87077; 87086; 87088; 87186; 96361; 96365; 96366; 96375; 99285; A9270; G0378; J0696; J1885; J2270; J7030; J7040

== ENCOUNTER 2024-04-05 18:58 | Emergency (ER) | payer MEDICARE, SELFPAY ==
[2024-04-05 19:00] VITALS: BP 175/99; PULSE 111; RESP 18; O2SAT 99
[2024-04-05 19:03] VITALS: TEMP 36.6
--- NOTE | 2024-04-05 19:28 | ED_ITS ---
HPI - Dental/Oral General Chief complaint: Dental/Oral Stated complaint: dental pain Time Seen by Provider: 04/05/24 19:01 Source: patient Mode of arrival: ambulatory Limitations: no limitations History of Present Illness HPI Narrative: patient with history of dental pain and currently has a cracked tooth surrounding gum inflammation with a tender left submandibular gland with no fever chills no shortness of breath. Complaint: tooth pain Teeth map: 2 1. Cracked tooth with surrounding gum inflammation Onset (ago): week(s) Severity: moderate Severity scale (1-10): 6 Relieving factors: NSAIDs Context: history of dental caries Associated symptoms: gum swelling Related Data Home Medications ?Medication ?Instructions ?Recorded ?Confirmed ?Last Taken ?Type sitagliptin phosphate 25 mg tablet 25 mg PO DAILY 10/10/22 04/04/23 Unknown History (Januvia) atorvastatin 20 mg tablet 20 mg PO DAILY 04/04/23 04/04/23 Unknown History pregabalin 50 mg capsule 50 mg PO BID 04/04/23 04/04/23 Unknown History Allergies Allergy/AdvReac Type Severity Reaction Status Date / Time No Known Allergies Allergy Unknown Unverified 10/10/22 19:10 Review of Systems 2 Review of Systems: All systems reviewed & are unremarkable except as noted in HPI and below PMFSH Past Medical History Medical History IBS (irritable bowel syndrome) Acute shoulder pain Fibromyalgia Type 2 diabetes mellitus COPD (chronic obstructive pulmonary disease) Asthma Hypertension Dyslipidemia Surgical History Surgical History S/P hernia repair ventral Family History Family History Other Diabetes mellitus Family history of alcoholism Family history of arthritis Family history of cardiovascular disease Hypertension Social History Social History Smoking packs per day: 20 Smoking cigarettes per day: 400.0 Years smoked: 35 Smoking pack-years: 700.00 Smoking status: Current every day smoker Tobacco type: cigarettes Alcohol intake: never Substance use: never Do You Feel Safe in your Home?: Yes Lack of Transportation: No Lack of Food: Never True Current Housing: I Have Housing Concerned About Future Housing: No Difficulty Paying Gas/Electric Bills: No Difficulty Paying for Meds: No Currently Unemployed: No Education: High School Diploma/GED Difficulty w/ Childcare or Family Care: No Living arrangements: with family Spiritual care concerns: No Exam 2 Const: General: healthy appearing and no acute distress Nutritional Appearance: well nourished Orientation/consciousness: patient oriented x3 Limitations: no limitations HENMT: Head: normal to inspection Neck: Neck: lymphadenopathy Chest: Chest palpation & inspection: normal inspection of the chest Resp: Effort & Inspection: normal respiratory effort Auscultation: clear to auscultation bilaterally Cardio: Rate: regular rate Rhythm: regular rhythm GI: GI Palp: Yes Soft to palpation Auscultation: normal bowel sounds Course Course Emergency Course: Patient received Toradol 60mg IM for dental pain and a dose of 500mg p.o. mom oxacillin. Vital Signs Vital signs: Vital Signs Pulse Rate 111 H 04/05/24 19:00 Respiratory Rate 18 04/05/24 19:00 Blood Pressure 175/99 H 04/05/24 19:00 Pulse Oximetry 99 04/05/24 19:00 Oxygen Delivery Room Air 04/05/24 19:00 Temperature 36.6 C 04/05/24 19:03 Pulse Rate 111 H 04/05/24 19:00 Respiratory Rate 18 04/05/24 19:00 Blood Pressure 175/99 H 04/05/24 19:00 Pulse Oximetry 99 04/05/24 19:00 Oxygen Delivery Room Air 04/05/24 19:00 Critical Care Time Critical Care Time Critical Care Time: No Discharge Plan Discharge Clinical Impression: Dental abscess Patient Disposition: Home, Self-Care Condition: Stable Instructions: Antibiotic Form, Dental Abscess (ED) Additional Instructions: take medication as prescribed and follow with dentist for further evaluation. Patient Language: Turkish Prescriptions: New amoxicillin 500 mg capsule 500 mg PO TID Qty: 30 0RF tramadol 50 mg tablet 50 mg PO Q6H PRN (Reason: pain) Qty: 20 0RF No Action Januvia 25 mg Tablet 25 mg PO DAILY atorvastatin 20 mg tablet 20 mg PO DAILY pregabalin 50 mg capsule 50 mg PO BID hydrocodone-acetaminophen 5-325 mg Tablet 1 tablet PO Q4H PRN (Reason: severe pain (scale score 7-10)) Qty: 12 0RF cefdinir 300 mg capsule 300 mg PO Q12H Qty: 10 0RF Follow-up/Referrals: Armando Negrete MD [Primary Care Provider] - Stand Alone Forms: Work/School Release IP Time of Disposition: 19:33
[2024-04-05] MEDS: KETOROLAC (*BKC) 60 MG/2 ML VIAL IM (19:43)
[2024-04-05] MEDS: AMOXICILLIN 500 MG CAPSULE PO (19:43)
== END 2024-04-05 20:12 | disposition home or self-care (01) ==
PROVIDERS: Emergency Provider Emergency Medicine; PCP Family Medicine
DX: K04.7 Periapical abscess without sinus (principal); I10 Essential (primary) hypertension; E78.5 Hyperlipidemia, unspecified; E11.9 Type 2 diabetes mellitus without complications; J44.9 Chronic obstructive pulmonary disease, unspecified; M79.7 Fibromyalgia; F17.210 Nicotine dependence, cigarettes, uncomplicated; Z79.84 Long term (current) use of oral hypoglycemic drugs
CPT/HCPCS: 96372; 99283; A9270; J1885

== ENCOUNTER 2024-04-23 12:39 | Emergency (ER) | payer MEDICARE, SELFPAY ==
--- NOTE | ~2024-04-23 | CT_ITS ---
EXAMINATION: CT abdomen pelvis wo con DATE: 04/23/2024 12:54 INDICATION: Right flank pain and hematuria TECHNIQUE: Computed tomography (CT) of the abdomen and pelvis was performed without intravenous contr ast. Automated exposure control and iterative reconstruction technique were employed. The dose-length product was 242.59 mGy-cm. COMPARISON: 04/04/2023 FINDINGS: Bases are clear. Heart size is normal. Atherosclerotic coronary artery calcification. No pericardial or pleural effusion. Liver, gallbladder, spleen, pancreas and left adrenal gland are normal. Low-atte nuation 1.3 cm right adrenal adenoma. Bilateral nephrolithiasis with 4 stones in the right kidney russell suring up to 3 mm and 3 stones measuring up to 3 mm in the left kidney. In addition there is a 6 mm o bstructing stone at the left ureterovesicular junction with mild left hydroureteronephrosis and left perinephric stranding. Bowels including the appendix are normal. Decompressed bladder, anteverted ambler jackelin and bilateral adnexa are unremarkable. No free intraperitoneal gas or fluid. No pathologically en larged abdominal or pelvic lymphadenopathy. Mild to moderate lumbar and lower thoracic spondylosis. C hronic likely physiologic mild anterior wedging at T11 and T12. IMPRESSION: 1. Bilateral nephrolithiasis with obstructing 6 mm stone at the left ureterovesicular junction with m ild left hydroureteronephrosis. Reviewed, dictated and finalized at location B. [employer] IMPRESSION: 1. Bilateral nephrolithiasis with obstructing 6 mm stone at the left ureteroves icular junction with mild left hydroureteronephrosis.
[2024-04-23 12:41] VITALS: BP 162/89; PULSE 122; RESP 18; TEMP 36.7; O2SAT 100
--- NOTE | 2024-04-23 12:42 | ED.ABDPAIN ---
HPI - Abdominal Pain General Chief Complaint: Urogenital-Female Stated Complaint: abdominal pain, back pain Time Seen by Provider: 04/23/24 12:40 History of Present Illness HPI narrative: Pt with hx of DM, kidney stone and fibromyalgia among others presents with right low back pain and suprapubic and right low abdominal pain since 0330 this morning. Pt thought it might be a UTI and was getting outptient labs drawn and they dipped her urine and it was positive for blood but not infection so they sent her to the ED for evaluation. Pt has urinary frequency and dysuria. Pt admits to having history of kidney stones and still has stones present in kidney. Related Data Home Medications ?Medication ?Instructions ?Recorded ?Confirmed ?Last Taken ?Type sitagliptin phosphate 25 mg tablet 25 mg PO DAILY 10/10/22 04/05/24 04/05/24 History (Januvia) atorvastatin 20 mg tablet 20 mg PO DAILY 04/04/23 04/05/24 04/05/24 History pregabalin 50 mg capsule 50 mg PO BID 04/04/23 04/05/24 04/05/24 History Allergies Allergy/AdvReac Type Severity Reaction Status Date / Time No Known Allergies Allergy Unknown Verified 04/23/24 12:42 Review of Systems Review of Systems: All systems reviewed & are unremarkable except as noted in HPI and below PMFSH Past Medical History Medical History IBS (irritable bowel syndrome) Acute shoulder pain Fibromyalgia Type 2 diabetes mellitus COPD (chronic obstructive pulmonary disease) Asthma Hypertension Dyslipidemia Surgical History Surgical History S/P hernia repair ventral Family History Family History Other Diabetes mellitus Family history of alcoholism Family history of arthritis Family history of cardiovascular disease Hypertension Social History Social History Smoking packs per day: 20 Smoking cigarettes per day: 400.0 Years smoked: 35 Smoking pack-years: 700.00 Smoking status: Current every day smoker Tobacco type: cigarettes Alcohol intake: never Substance use: never Do You Feel Safe in your Home?: Yes Lack of Transportation: No Lack of Food: Never True Current Housing: I Have Housing Concerned About Future Housing: No Difficulty Paying Gas/Electric Bills: No Difficulty Paying for Meds: No Currently Unemployed: No Education: High School Diploma/GED Difficulty w/ Childcare or Family Care: No Living arrangements: with family Spiritual care concerns: No Exam Const: General: healthy appearing and no acute distress Nutritional Appearance: well nourished Orientation/consciousness: patient oriented x3 Limitations: no limitations Cardio: Rate: regular rate Rhythm: regular rhythm GI: GI Palp: Yes Soft to palpation and Yes Tenderness to palpation present (GI) (right low abdomen not at mcburney's and suprapubic) Auscultation: normal bowel sounds : General: Yes Bladder palpation abnormal tender Back/Spine/Pelvis: Back: no CVA tenderness Other: tender right si joint low back Skin: General skin exam: normal color Rashes: no rashes Wounds: no wounds Neuro: General: patient oriented x3, moves all extremities and no focal motor deficits Speech: normal speech Extrem: General: normal to inspection and no clubbing, cyanosis or edema Psych: Mental Status: mental status grossly normal Affect: normal affect Attitude: cooperative Course Vital Signs Vital signs: Vital Signs Temperature 98.0 F 04/23/24 12:41 Pulse Rate 122 H 04/23/24 12:41 Respiratory Rate 18 04/23/24 12:41 Blood Pressure 162/89 H 04/23/24 12:41 Pulse Oximetry 100 04/23/24 12:41 Oxygen Delivery Room Air 04/23/24 12:41 Temperature 98.0 F 04/23/24 12:41 Pulse Rate 122 H 04/23/24 12:41 Respiratory Rate 18 04/23/24 12:41 Blood Pressure 162/89 H 04/23/24 12:41 Pulse Oximetry 100 04/23/24 12:41 Oxygen Delivery Room Air 04/23/24 12:41 MDM - Abdominal Pain MDM Narrative Medical decision making narrative: Pt presents with right low back pain and blood in urine dip and concerned she might have kidney stone. Will repeat labs and UA and get CT abd/pelvis to rule out stone. Will try a dose of toradol for pain. Pt feels much better. Pt has 6mm right uvj stone with hydro. will try pain control and flomax and urology follow up. Lab Data 04/23/24 12:59 04/23/24 12:59 Labs: Lab Results 04/23/24 Range/Units 12:59 WBC 14.5 H (4.8-10.8) K/mm3 RBC 4.69 (4.20-5.40) M/mm3 Hgb 14.2 H (11.7-13.8) g/dL Hct 41.1 (35.0-42.0) % MCV 87.6 (78.0-102.0) fL MCH 30.3 (27.0-31.0) pg MCHC 34.5 (32-36) g/dL RDW 12.1 (11.6-14.4) % Plt Count 310 (150-420) K/mm3 MPV 8.7 L (9.2-11.8) fl Immature Gran % (Auto) 0.4 H (0.0-0.0) % Neut % (Auto) 71.8 H (50.0-70.0) % Lymph % (Auto) 21.5 (18.0-42.0) % [place] % (Auto) 5.0 (2.0-11.0) % Eos % (Auto) 0.9 L (1.0-6.0) % Baso % (Auto) 0.4 (0.0-1.0) % Lymph # (Auto) 3.11 (1.10-4.50) K/mm3 [place] # (Auto) 0.73 (0.10-0.90) K/mm3 Eos # (Auto) 0.13 (0.02-0.50) K/mm3 Baso # (Auto) 0.06 (0.00-0.10) K/mm3 Abs Immat Gran (auto) 0.06 H (0.00-0.00) K/mm3 Absolute Neuts (auto) 10.39 H (1.70-7.20) K/mm3 Absolute Nucleated RBC 0.00 (0.00-0.00) K/mm3 Nucleated RBC % 0.0 (0-0.0) % Sodium 138 (136-145) mmol/L Potassium 4.0 (3.5-5.1) mmol/L Chloride 99 (98-108) mmol/L Carbon Dioxide 27 (21-32) mmol/L Anion Gap 12 (4-12) mmol/L BUN 14 (7-18) mg/dL Creatinine 0.87 (0.55-1.02) mg/dL Estim Creat Clear Calc 59 ml/min Estimated GFR > 60 (59 - ) Glucose 220 H (70-99) mg/dL Calculated Osmolality 293 (285-295) mOsm/kg Calcium 9.0 (8.5-10.1) mg/dL Total Bilirubin 0.6 (0.00-1.00) mg/dL AST 12 L (15-37) U/L ALT 24 (14-59) U/L Alkaline Phosphatase 82 (46-116) U/L Total Protein 7.5 (6.4-8.2) g/dL Albumin 4.0 (3.4-5.0) g/dL Urine Color Dark yellow (Yellow) Urine Appearance Sl cloudy A (Clear) Urine pH 6.0 (5.0-8.0) Ur Specific [place] 1.025 H (1.010-1.020) Urine Protein Trace H (Negative) Urine Glucose (UA) Negative (Negative) Urine Ketones Negative (Negative) Ur Blood (Man) 3+ H (Negative) Urine Nitrate Negative (Negative) Urine Bilirubin 1+ H (Negative) Urine Urobilinogen 0.2 (0.2-1.0) mg/dL Leukocyte Esterase Rfl Trace H (Negative) JN/UL Urine RBC 51-100 H (0-2) /hpf Urine WBC 0-3 (0-3) /hpf Ur Squamous Epith Cells Few (Few) /hpf Urine Bacteria 1+ H (None) /hpf Imaging Data Radiologist's impression: ITS Impressions Abdomen/Pelvis CT 04/23/24 13:00 IMPRESSION: 1. Bilateral nephrolithiasis with obstructing 6 mm stone at the left ureterovesicular junction with mild left hydroureteronephrosis. Discharge Plan Discharge Clinical Impression: Ureterolithiasis Patient Disposition: Home, Self-Care Condition: Improved Instructions: Antibiotic Form, Kidney Stones (ED) Patient Language: Yi Prescriptions: New hydrocodone-acetaminophen 5-325 mg tablet 1 tablet PO Q6H PRN (Reason: pain) Qty: 14 0RF tamsulosin [Flomax] 0.4 mg capsule 0.4 mg PO DAILY Qty: 10 0RF ondansetron 4 mg tablet,disintegrating 4 mg PO Q8H PRN (Reason: nausea and vomiting) Qty: 10 0RF No Action Januvia 25 mg Tablet 25 mg PO DAILY tramadol 50 mg tablet 50 mg PO Q6H PRN (Reason: pain) Qty: 20 0RF atorvastatin 20 mg tablet 20 mg PO DAILY pregabalin 50 mg capsule 50 mg PO BID Follow-up/Referrals: Bhaskar Jones MD [Physician] - Armando Negrete MD [Primary Care Provider] -
[2024-04-23] MEDS: KETOROLAC 30 MG/ML VIAL (*BKC) IV PUSH (13:04)
[2024-04-23 13:05] LABS: Add Urine Microscopic? YES; Basophils Absolute Auto 0.06 K/mm3 (0.00-0.10); Basophils Percent Auto 0.4 % (0.0-1.0); Bilirubin Urine 1+ (Negative); Blood Urine 3+ (Negative); Color Urine Dark Yellow (Yellow); Eosinophils Absolute Auto 0.13 K/mm3 (0.02-0.50); Eosinophils Percent Auto 0.9 % (1.0-6.0); Glucose Urine UA Negative (Negative); Hematocrit 41.1 % (35.0-42.0); Hemoglobin 14.2 g/dL (11.7-13.8); Immature Granulocyte Absolute 0.06 K/mm3 (0.00-0.00); Immature Granulocyte Percent A 0.4 % (0.0-0.0); Ketones Urine Negative (Negative); Leukocyte Esterase Ur Trace LEU/UL (Negative); Lymphocytes Absolute Auto 3.11 K/mm3 (1.10-4.50); Lymphocytes Percent Auto 21.5 % (18.0-42.0); Mean Corpuscular HGB Conc 34.5 g/dL (32-36); Mean Corpuscular Hemoglobin 30.3 pg (27.0-31.0); Mean Corpuscular Volume 87.6 fL (78.0-102.0); Mean Platelet Volume 8.7 fl (9.2-11.8); Monocytes Absolute Auto 0.73 K/mm3 (0.10-0.90); Neutrophils Absolute Auto 10.39 K/mm3 (1.70-7.20); Neutrophils Percent Auto 71.8 % (50.0-70.0); Nitrate Urine Negative (Negative); Platelet Count Result 310 K/mm3 (150-420); Protein Urine Trace (Negative); Red Blood Count 4.69 M/mm3 (4.20-5.40); Red Cell Distribution Width 12.1 % (11.6-14.4); Specific Grav Ur 1.025 (1.010-1.020); Urobilinogen Urine 0.2 mg/dL (0.2-1.0); White Blood Count 14.5 K/mm3 (4.8-10.8)
[2024-04-23 13:10] LABS: Appearance Urine Sl Cloudy (Clear); Bacteria Urine 1+ /hpf; RBC Urine 51-100 /hpf (0-2); Squamous Epithelial Cell Urine Few /hpf (Few); WBC Urine 0-3 /hpf (0-3)
[2024-04-23 13:27] LABS: Alanine Aminotransferase 24 U/L (14-59); Alkaline Phosphatase 82 U/L (46-116); Anion Gap 12 mmol/L (4-12); Aspartate Amino Transferase 12 U/L (15-37); Bilirubin,Total 0.6 mg/dL (0.00-1.00); Blood Urea Nitrogen 14 mg/dL (7-18); Carbon Dioxide 27 mmol/L (21-32); Chloride 99 mmol/L (98-108); Estimated CRCL calculation 59 ml/min; Estimated Glomerular Filt Rate > 60; Glucose 220 mg/dL (70-99); Osmolality Calculated 293 mOsm/kg (285-295); Sodium 138 mmol/L (136-145); Total Protein 7.5 g/dL (6.4-8.2)
--- NOTE | 2024-04-23 14:00 | PC.NURSE ---
female urology list provided for pt.
[2024-04-23 14:01] VITALS: BP 152/87; PULSE 106; RESP 20; TEMP 37; O2SAT 98
== END 2024-04-23 14:01 | disposition home or self-care (01) ==
PROVIDERS: Emergency Provider Emergency Medicine; PCP Family Medicine
DX: N20.1 Calculus of ureter (principal); I10 Essential (primary) hypertension; J44.9 Chronic obstructive pulmonary disease, unspecified; E11.9 Type 2 diabetes mellitus without complications; F17.210 Nicotine dependence, cigarettes, uncomplicated
CPT/HCPCS: 36415; 74176; 80053; 81001; 85025; 96374; 99284; J1885